=== PATIENT | female | born 1935 | race Caucasian/White ===

== ENCOUNTER 2019-05-20 15:56 | Observation (INO) | payer MEDICARE, BC ==
[~2019-05-20] VITALS: Ht 165.1 cm; Wt 69.0 kg
[2019-05-20] MEDS ORDERED: TEGRETOL200 M1 PO (16:24)
[2019-05-20] MEDS ORDERED: ALPRAZOLAM0.5 MG PO (16:24)
[2019-05-20] MEDS ORDERED: QUETIAPINE FUMA50 MG PO (16:25)
[2019-05-20] MEDS ORDERED: NORVASC 10MG10 MG PO (16:25)
[2019-05-20] MEDS ORDERED: MICARDIS80 MG PO (16:25)
[2019-05-20] MEDS ORDERED: GLUCOPHAGE PO (16:25)
[2019-05-20] MEDS ORDERED: CARVEDILOL25 MG PO (16:26)
[2019-05-20 16:34] VITALS: BP 166/84
[2019-05-20] MEDS ORDERED: CHOLESTYRAMINE P4 GM PO (17:29)
[2019-05-20] MEDS ORDERED: SIMVASTATIN40 M1 PO (17:29)
[2019-05-20] MEDS ORDERED: FUROSEMIDE20 MG PO (17:29)
[2019-05-20] MEDS ORDERED: HYDRALAZINE HYD50 MG PO (17:29)
[2019-05-20] MEDS ORDERED: CLONIDINE HYDR0.2 MG PO (17:30)
[2019-05-20 17:55] VITALS: BP 162/78
[2019-05-20 17:57] VITALS: BP 162/80
[2019-05-20 17:58] VITALS: BP 162/80
[2019-05-20 18:14] LABS: SODIUM 138 mmol/L (136-145)
[2019-05-20 18:15] LABS: CALCIUM 9.2 mg/dL (8.3-10.5)
[2019-05-20 18:16] LABS: GLUCOSE 141 mg/dL (65-105)
[2019-05-20 18:17] LABS: CARBON DIOXIDE 22 mmol/L (23-31)
[2019-05-20 18:34] LABS: TROPONIN-I < 0.03 ng/mL (<0.030)
[2019-05-20 18:38] VITALS: BP 162/78
[2019-05-20 23:28] VITALS: BP 128/75
[2019-05-21 03:20] VITALS: BP 122/64
[2019-05-21 06:00] LABS: HEMATOCRIT 28.9 % (37.0-47.0); HEMOGLOBIN 9.6 g/dL (12.5-16.0); MEAN CELL VOLUME 88 fl (78-100); MEAN CORPUSCULAR HEMOGLOBIN 29 pg (27-31); MEAN CORPUSCULAR HGB CONC 33 g/dL (33-37); MEAN PLATELET VOLUME 8.7 fl (7.4-10.4); PLATELET COUNT 219 K/mm3 (130-400); RED BLOOD COUNT 3.28 M/mm3 (4.10-5.30); RED CELL DISTRIBUTION WIDTH 13.2 % (11.5-14.5); WHITE BLOOD COUNT 3.8 K/mm3 (4.8-10.8)
[2019-05-21 06:14] LABS: LYMPHOCYTE 30 % (20-51); MONOCYTE 15 % (3-10); NEUTROPHILS 53 % (42-75)
[2019-05-21 06:15] LABS: CALCIUM 8.7 mg/dL (8.3-10.5)
[2019-05-21 06:16] VITALS: BP 146/70
[2019-05-21 09:26] VITALS: BP 163/79
== END 2019-05-21 11:21 | disposition home or self-care (01) ==
LOC: MED/SURG 15:56
PROVIDERS: ADMIT Nurse Practitioner Family
DX: R55 Syncope and collapse (principal); G40.909 Epilepsy, unspecified, not intractable, without status epilepticus; E11.9 Type 2 diabetes mellitus without complications; I10 Essential (primary) hypertension; F41.9 Anxiety disorder, unspecified; Z87.891 Personal history of nicotine dependence; Z79.84 Long term (current) use of oral hypoglycemic drugs; Z82.49 Family history of ischemic heart disease and other diseases of the circulatory system; Z80.0 Family history of malignant neoplasm of digestive organs; Z88.0 Allergy status to penicillin
CPT/HCPCS: G0378